=== PATIENT | male | born 1975 | race Caucasian/White ===

== ENCOUNTER 2019-07-03 12:25 | Inpatient (IN) | payer OTHER ==
[~2019-07-03] VITALS: Ht 182.9 cm; Wt 85.0 kg
[~2019-07-03 12:25] MED LIST: ALPR1TAB7 PO; CITA10TA68 PO
[2019-07-03] MEDS ORDERED: SODIUM CHLORIDE 0.9% 2,000 ML IV ONE (12:51)
[2019-07-03] MEDS ORDERED: INSULIN REGULAR, HUMAN 100 UNITS/ML IVP ONE (13:00)
[2019-07-03 13:55] LABS: EOSINOPHILS % (AUTO) 1.7 % (1.0-6.0); HEMATOCRIT 32.4 % (41-53); HEMOGLOBIN 10.1 g/dL (13.5-17.5); LYMPHOCYTES # (AUTO) 1.5 K/uL (1.0-4.8); LYMPHOCYTES % (AUTO) 12.4 % (22.0-44.0); MEAN CORPUSCULAR HEMOGLOBIN 23.9 pg (26.0-34.0); MEAN CORPUSCULAR HGB CONC 31.2 G/dL (31.0-37.0); MEAN CORPUSCULAR VOLUME 77 fL (80-100); MONOCYTES # (AUTO) 0.8 K/uL (0.1-1.0); MONOCYTES % (AUTO) 6.7 % (2.0-9.0); NEUTROPHILS # (AUTO) 9.2 K/uL (1.8-7.7); NEUTROPHILS % (AUTO) 78.2 % (40.0-70.0); PLATELET COUNT (AUTO) 455 K/uL (150-450); RED BLOOD CELL COUNT(AUTO) 4.21 MIL/uL (4.50-5.90)
[2019-07-03 14:06] LABS: ANION GAP 5 mmol/L (8-16); CALCIUM, TOTAL 9.1 mg/dL (8.8-10.5); CARBON DIOXIDE 31 mmol/L (22-29); CHLORIDE 104 mmol/L (98-107); GLOMERULAR FILTR. RATE CALC > 60 mL/min (>60); GLUCOSE,RANDOM 78 mg/dL (70-110); POTASSIUM 4.9 mmol/L (3.5-5.1); SODIUM SERUM 140 mmol/L (136-145); UREA NITROGEN, BLOOD 9 mg/dL (7-18)
[2019-07-03 14:11] LABS: ALANINE AMINOTRANSFERASE 23 U/L (12-78); ALBUMIN 2.8 g/dL (3.4-5.0); ALKALINE PHOSPHATASE 54 U/L (46-116); ASPARTATE AMINOTRANSFERASE 14 U/L (15-37); BILIRUBIN,TOTAL 0.2 mg/dL (0.1-1.0); LIPASE 106 U/L (73-393); TOTAL PROTEIN, SERUM 8.6 g/dL (6.4-8.2)
[2019-07-03 14:20] LABS: B-TYPE NATRIURETIC PEPTIDE 97 pg/mL (0-100)
[2019-07-03] MEDS ORDERED: LIDOCAINE 5% TRANSDERMAL PATCH TD ONE (14:30)
[2019-07-03] MEDS ORDERED: ACETAMINOPHEN 325 MG TABLET PO ONE (14:30)
[2019-07-03 14:45] VITALS: BP 140/78
[2019-07-03] MEDS ORDERED: LOPERAMIDE HCL 2 MG CAPSULE PO PRN (15:15)
[2019-07-03] MEDS ORDERED: GuaiFENesin/D-METHORPHAN [SUGAR-FREE] 200-20MG/10 ML SYRUP UDCUP PO PRN (15:15)
[2019-07-03] MEDS ORDERED: ONDANSETRON HCL 4 MG/2 ML VIAL IVP PRN (15:15)
[2019-07-03] MEDS ORDERED: ALBUTEROL SULFATE HFA 90 MCG/PUFF 8 GM INHALER IH PRN (15:15)
[2019-07-03] MEDS ORDERED: ONDANSETRON HCL 4 MG TABLET PO PRN (15:15)
[2019-07-03] MEDS ORDERED: DOCUSATE SODIUM 100 MG CAPSULE PO PRN (15:15)
[2019-07-03] MEDS ORDERED: ACETAMINOPHEN 325 MG TABLET PO PRN ×2 (15:15)
[2019-07-03] MEDS ORDERED: 0.9% SODIUM CHLORIDE 10 ML SYRINGE IVP PRN (15:15)
[2019-07-03] MEDS ORDERED: NICOTINE 14 MG/24 HOUR PATCH TD PRN (15:15)
[2019-07-03] MEDS ORDERED: CloNIDine HCL 0.1 MG TABLET PO PRN (15:15)
[2019-07-03] MEDS ORDERED: MAGNESIUM HYDROXIDE SUSPENSION 30 ML UDCUP PO PRN (15:15)
[2019-07-03] MEDS ORDERED: MAG HYDROX/AL HYDROX/SIMETH ES 30 ML SUSPENSION UDCUP PO PRN (15:15)
[2019-07-03] MEDS ORDERED: PETROLATUM,WHITE 28 GM JELLY TP PRN (15:15)
[2019-07-03 16:45] LABS: APPEARANCE,URINE CLEAR (CLEAR); BILIRUBIN,URINE NEGATIVE (NEGATIVE); GLUCOSE, URINE (UA) NEGATIVE (NEGATIVE); KETONES,URINE NEGATIVE (NEGATIVE); LEUKOCYTE ESTERASE ,URINE NEGATIVE (NEGATIVE); NITRATE,URINE NEGATIVE (NEGATIVE); OCCULT BLOOD,URINE NEGATIVE (NEGATIVE); PH,URINE 7.5 (5.0-8.0); PROTEIN,URINE NEGATIVE (NEGATIVE); UROBILINOGEN,URINE 0.2 mg/dL (<=1.0)
[2019-07-03 16:51] LABS: AMPHET/METH SCREEN,URINE NEGATIVE (NEGATIVE); BARBITURATE SCREEN, URINE NEGATIVE (NEGATIVE); BENZODIAZEPINES SCREEN,URINE NEGATIVE (NEGATIVE); CANNABINOID SCREEN,URINE NEGATIVE (NEGATIVE); COCAINE SCREEN,URINE NEGATIVE (NEGATIVE); METHADONE SCREEN, URINE NEGATIVE (NEGATIVE); OPIATE SCREEN,URINE NEGATIVE (NEGATIVE); PHENCYCLIDINE SCREEN,URINE NEGATIVE (NEGATIVE)
[2019-07-03] MEDS: IBUPROFEN 400 MG TABLET PO PRN (16:58)
[2019-07-03] MEDS ORDERED: MORPHINE SULFATE 2 MG/ML SYRINGE IVP ONE (18:15)
[2019-07-03 20:11] VITALS: BP 138/81
[2019-07-04] MEDS: ASCORBIC ACID 500 MG TABLET PO SCH (21:00)
[2019-07-05 07:31] LABS: HIV 1-2 SCREEN 4TH GEN W/RFLX Non Reactive (Non Reactive)
[2019-07-05] MEDS: MULTIVITAMINS WITH MINERALS, THERAPEUTIC TABLET PO SCH (08:45)
[2019-07-05] MEDS: ZINC SULFATE 220 MG CAPSULE PO SCH (08:46)
[2019-07-05] MEDS: ASCORBIC ACID 500 MG TABLET PO SCH ×2 (08:46→22:18)
[2019-07-05] MEDS ORDERED: MORPHINE SULFATE 10 MG/ML SYRINGE IVP ONE (21:45)
[2019-07-05] MEDS ORDERED: MORPHINE SULFATE 2 MG/ML SYRINGE IVP ONE (22:00)
[2019-07-05 22:19] VITALS: BP 137/87
[2019-07-06 00:06] LABS: QUANTIFERON+, Nil Value 0.03 IU/mL; QUANTIFERON+,Mitogen Value 5.03 IU/mL; QUANTIFERON+,TB1 Antigen Value 0.03 IU/mL; QUANTIFERON, TB GOLD PLUS Negative (Negative)
[2019-07-06 04:45] VITALS: BP 135/82
[2019-07-06 07:53] VITALS: BP 122/61
[2019-07-06] MEDS: ZINC SULFATE 220 MG CAPSULE PO SCH (08:41)
[2019-07-06] MEDS: IBUPROFEN 400 MG TABLET PO PRN ×2 (08:41→16:33)
[2019-07-06] MEDS: MULTIVITAMINS WITH MINERALS, THERAPEUTIC TABLET PO SCH (08:41)
[2019-07-06] MEDS: ASCORBIC ACID 500 MG TABLET PO SCH ×2 (08:42→21:12)
[2019-07-06 15:46] VITALS: BP 134/84
[2019-07-06] MEDS: OxyCODONE HCL/ACETAMINOPHEN 5-325 MG TABLET PO PRN ×2 (17:01→21:12)
[2019-07-06 19:35] VITALS: BP 104/54
[2019-07-07] MEDS: OxyCODONE HCL/ACETAMINOPHEN 5-325 MG TABLET PO PRN ×5 (01:43→20:09)
[2019-07-07 05:00] VITALS: BP 115/75
[2019-07-07 07:31] VITALS: BP 133/69
[2019-07-07] MEDS: ZINC SULFATE 220 MG CAPSULE PO SCH (08:01)
[2019-07-07] MEDS: MULTIVITAMINS WITH MINERALS, THERAPEUTIC TABLET PO SCH (08:01)
[2019-07-07] MEDS: ASCORBIC ACID 500 MG TABLET PO SCH ×2 (08:01→20:08)
[2019-07-07] MEDS: IBUPROFEN 400 MG TABLET PO PRN ×2 (08:03→16:10)
[2019-07-07] MEDS ORDERED: SODIUM CHLORIDE 3% 15 ML NEB SOLUTION NEB ONE (11:35)
[2019-07-07 15:43] VITALS: BP 122/85
[2019-07-07 19:54] LABS: BASOPHILS % (AUTO) 0.4 % (0.0-2.0); EOSINOPHILS % (AUTO) 1.4 % (1.0-6.0); HEMATOCRIT 33.7 % (41-53); HEMOGLOBIN 10.7 g/dL (13.5-17.5); LYMPHOCYTES # (AUTO) 1.7 K/uL (1.0-4.8); LYMPHOCYTES % (AUTO) 13.6 % (22.0-44.0); MEAN CORPUSCULAR HEMOGLOBIN 24.2 pg (26.0-34.0); MEAN CORPUSCULAR HGB CONC 31.6 G/dL (31.0-37.0); MEAN CORPUSCULAR VOLUME 76 fL (80-100); MONOCYTES # (AUTO) 1.2 K/uL (0.1-1.0); MONOCYTES % (AUTO) 9.7 % (2.0-9.0); NEUTROPHILS # (AUTO) 9.4 K/uL (1.8-7.7); NEUTROPHILS % (AUTO) 74.9 % (40.0-70.0); PLATELET COUNT (AUTO) 455 K/uL (150-450); RED BLOOD CELL COUNT(AUTO) 4.42 MIL/uL (4.50-5.90); RED CELL DISTRIBUTION WIDTH 15.9 % (11.5-14.5)
[2019-07-07 20:15] VITALS: BP 118/64
[2019-07-08] MEDS: OxyCODONE HCL/ACETAMINOPHEN 5-325 MG TABLET PO PRN ×7 (00:26→20:54)
[2019-07-08] MEDS: IBUPROFEN 400 MG TABLET PO PRN ×3 (04:18→20:56)
[2019-07-08 04:42] VITALS: BP 124/70
[2019-07-08] MEDS: ASCORBIC ACID 500 MG TABLET PO SCH ×2 (08:42→20:54)
[2019-07-08] MEDS: MULTIVITAMINS WITH MINERALS, THERAPEUTIC TABLET PO SCH (08:42)
[2019-07-08] MEDS: ZINC SULFATE 220 MG CAPSULE PO SCH (08:42)
[2019-07-08 08:45] VITALS: BP 118/72
[2019-07-08] MEDS: DOXYCYCLINE HYCLATE 100 MG CAPSULE PO SCH ×2 (13:06→20:54)
[2019-07-08 16:05] VITALS: BP 130/69
[2019-07-08 18:51] LABS: ALANINE AMINOTRANSFERASE 60 U/L (12-78); ALBUMIN 2.7 g/dL (3.4-5.0); ALKALINE PHOSPHATASE 63 U/L (46-116); ANION GAP 6 mmol/L (8-16); ASPARTATE AMINOTRANSFERASE 39 U/L (15-37); BILIRUBIN,TOTAL 0.1 mg/dL (0.1-1.0); CALCIUM, TOTAL 9.4 mg/dL (8.8-10.5); CARBON DIOXIDE 30 mmol/L (22-29); CHLORIDE 96 mmol/L (98-107); CREATININE 0.78 mg/dL (0.60-1.30); GLOMERULAR FILTR. RATE CALC > 60 mL/min (>60); GLUCOSE,RANDOM 91 mg/dL (70-110); POTASSIUM 4.4 mmol/L (3.5-5.1); SODIUM SERUM 132 mmol/L (136-145); UREA NITROGEN, BLOOD 15 mg/dL (7-18)
[2019-07-08 19:48] VITALS: BP 108/61
[2019-07-09] MEDS: OxyCODONE HCL/ACETAMINOPHEN 5-325 MG TABLET PO PRN ×4 (01:27→13:41)
[2019-07-09 04:43] VITALS: BP 155/87
[2019-07-09] MEDS: IBUPROFEN 400 MG TABLET PO PRN ×2 (05:23→13:42)
[2019-07-09 07:30] VITALS: BP 105/59
[2019-07-09] MEDS: ASCORBIC ACID 500 MG TABLET PO SCH (08:25)
[2019-07-09] MEDS: MULTIVITAMINS WITH MINERALS, THERAPEUTIC TABLET PO SCH (08:26)
[2019-07-09] MEDS: ZINC SULFATE 220 MG CAPSULE PO SCH (08:26)
[2019-07-09] MEDS: DOXYCYCLINE HYCLATE 100 MG CAPSULE PO SCH (11:12)
[2019-07-09] MEDS ORDERED: DOXY100C PO (11:50)
[2019-07-09 12:27] LABS: BASOPHILS % (AUTO) 0.8 % (0.0-2.0); EOSINOPHILS % (AUTO) 1.7 % (1.0-6.0); HEMATOCRIT 32.4 % (41-53); HEMOGLOBIN 10.1 g/dL (13.5-17.5); LYMPHOCYTES # (AUTO) 1.5 K/uL (1.0-4.8); MEAN CORPUSCULAR HEMOGLOBIN 23.5 pg (26.0-34.0); MEAN CORPUSCULAR HGB CONC 31.1 G/dL (31.0-37.0); MEAN CORPUSCULAR VOLUME 76 fL (80-100); MONOCYTES % (AUTO) 8.2 % (2.0-9.0); NEUTROPHILS # (AUTO) 9.3 K/uL (1.8-7.7); NEUTROPHILS % (AUTO) 77.3 % (40.0-70.0); PLATELET COUNT (AUTO) 457 K/uL (150-450); RED BLOOD CELL COUNT(AUTO) 4.29 MIL/uL (4.50-5.90); RED CELL DISTRIBUTION WIDTH 15.8 % (11.5-14.5)
[2019-07-09 12:31] LABS: ANION GAP 7 mmol/L (8-16); CALCIUM, TOTAL 9.2 mg/dL (8.8-10.5); CARBON DIOXIDE 27 mmol/L (22-29); CHLORIDE 98 mmol/L (98-107); CREATININE 0.68 mg/dL (0.60-1.30); GLOMERULAR FILTR. RATE CALC > 60 mL/min (>60); GLUCOSE,RANDOM 90 mg/dL (70-110); POTASSIUM 4.7 mmol/L (3.5-5.1); SODIUM SERUM 132 mmol/L (136-145); UREA NITROGEN, BLOOD 10 mg/dL (7-18)
[2019-07-09 12:42] LABS: ALANINE AMINOTRANSFERASE 41 U/L (12-78); ALBUMIN 2.4 g/dL (3.4-5.0); ALKALINE PHOSPHATASE 57 U/L (46-116); ASPARTATE AMINOTRANSFERASE 23 U/L (15-37); BILIRUBIN,TOTAL 0.2 mg/dL (0.1-1.0); TOTAL PROTEIN, SERUM 8.4 g/dL (6.4-8.2)
== END 2019-07-09 14:34 | DRG 204 ==
LOC: EMS 12:25 → 6S 14:25
PROVIDERS: ADMIT Internal Medicine; ATTEND Internal Medicine
DX: R04.2 Hemoptysis (principal); F41.9 Anxiety disorder, unspecified; F31.9 Bipolar disorder, unspecified; F11.90 Opioid use, unspecified, uncomplicated; F17.210 Nicotine dependence, cigarettes, uncomplicated; Z91.19 Patient's noncompliance with other medical treatment and regimen; Z87.442 Personal history of urinary calculi; M10.9 Gout, unspecified
CPT/HCPCS: 76770; 86480; 87015; 87040; 87081; 87206; 87389; 87556; 87798; 94640; J2270

== ENCOUNTER 2019-07-23 08:06 | Inpatient (IN) | payer OTHER ==
[~2019-07-23] VITALS: Ht 193 cm; Wt 109.6 kg
[~2019-07-23 08:06] MED LIST changes: -ALPR1TAB7 PO; -CITA10TA68 PO; +DOXY100C PO
[2019-07-23] MEDS ORDERED: CITA10TA68 PO (08:41)
[2019-07-23] MEDS ORDERED: BUSP15 PO (08:41)
[2019-07-23] MEDS ORDERED: SODIUM CHLORIDE 0.9% 1,000 ML IV ONE (08:47)
[2019-07-23 09:59] LABS: BILIRUBIN,URINE NEGATIVE (NEGATIVE); GLUCOSE, URINE (UA) NEGATIVE (NEGATIVE); KETONES,URINE 15 mg/dL (NEGATIVE); LEUKOCYTE ESTERASE ,URINE NEGATIVE (NEGATIVE); NITRATE,URINE NEGATIVE (NEGATIVE); OCCULT BLOOD,URINE NEGATIVE (NEGATIVE); UROBILINOGEN,URINE 0.2 mg/dL (<=1.0)
[2019-07-23 10:01] LABS: APPEARANCE,URINE CLEAR (CLEAR); PROTEIN,URINE NEGATIVE (NEGATIVE)
[2019-07-23] MEDS ORDERED: ACETAMINOPHEN 325 MG TABLET PO PRN ×2 (12:00→16:00)
[2019-07-23] MEDS ORDERED: 0.9% SODIUM CHLORIDE 10 ML SYRINGE IVP PRN (12:00)
[2019-07-23] MEDS ORDERED: ONDANSETRON HCL 4 MG/2 ML VIAL IVP PRN ×2 (12:00→16:00)
[2019-07-23 12:56] LABS: BASOPHILS % (AUTO) 0.8 % (0.0-2.0); EOSINOPHILS % (AUTO) 0.7 % (1.0-6.0); HEMATOCRIT 29.8 % (41-53); HEMOGLOBIN 9.3 g/dL (13.5-17.5); LYMPHOCYTES # (AUTO) 1.3 K/uL (1.0-4.8); LYMPHOCYTES % (AUTO) 15.9 % (22.0-44.0); MEAN CORPUSCULAR HEMOGLOBIN 23.2 pg (26.0-34.0); MEAN CORPUSCULAR HGB CONC 31.2 G/dL (31.0-37.0); MEAN CORPUSCULAR VOLUME 75 fL (80-100); MONOCYTES # (AUTO) 0.6 K/uL (0.1-1.0); MONOCYTES % (AUTO) 6.9 % (2.0-9.0); NEUTROPHILS # (AUTO) 6.3 K/uL (1.8-7.7); NEUTROPHILS % (AUTO) 75.7 % (40.0-70.0); PLATELET COUNT (AUTO) 409 K/uL (150-450); RED CELL DISTRIBUTION WIDTH 16.1 % (11.5-14.5)
[2019-07-23 13:06] LABS: ANION GAP 8 mmol/L (8-16); CARBON DIOXIDE 29 mmol/L (22-29); CHLORIDE 104 mmol/L (98-107); CREATININE 0.73 mg/dL (0.60-1.30); GLOMERULAR FILTR. RATE CALC > 60 mL/min (>60); GLUCOSE,RANDOM 83 mg/dL (70-110); SODIUM SERUM 141 mmol/L (136-145); UREA NITROGEN, BLOOD 7 mg/dL (7-18)
[2019-07-23] MEDS ORDERED: GADOBUTROL 1 MMOL/ML 10 ML VIAL IVP ONE ×2 (13:06→16:51)
[2019-07-23 13:11] LABS: ALANINE AMINOTRANSFERASE 23 U/L (12-78); ALBUMIN 2.6 g/dL (3.4-5.0); ALKALINE PHOSPHATASE 46 U/L (46-116); ASPARTATE AMINOTRANSFERASE 20 U/L (15-37); BILIRUBIN,TOTAL 0.2 mg/dL (0.1-1.0); LIPASE 84 U/L (73-393)
[2019-07-23] MEDS ORDERED: LORazepam 2 MG/ML VIAL IVP ONE ×2 (13:45→14:15)
[2019-07-23] MEDS ORDERED: MIDAZOLAM HCL 5 MG/ML VIAL IVP ONE (14:15)
[2019-07-23] MEDS ORDERED: DEXAMETHASONE SOD PHOS 4 MG/ML VIAL IVP ONE (14:15)
[2019-07-23] MEDS ORDERED: ZOLPIDEM TARTRATE 5 MG TABLET PO PRN (16:00)
[2019-07-23] MEDS ORDERED: MAGNESIUM HYDROXIDE SUSPENSION 30 ML UDCUP PO PRN (16:00)
[2019-07-23] MEDS ORDERED: MIDAZOLAM HCL 2 MG/2 ML VIAL IVP ONE (16:00)
[2019-07-23] MEDS ORDERED: BISACODYL 10 MG RECTAL RECTAL SUPPOSITORY PR PRN (16:00)
[2019-07-23] MEDS: MORPHINE SULFATE 2 MG/ML SYRINGE IVP PRN ×2 (17:56→21:54)
[2019-07-23] MEDS: HEPARIN SODIUM,PORCINE 5,000 UNITS/ML VIAL SQ SCH (18:03)
[2019-07-23 18:24] VITALS: BP 137/82
[2019-07-23] MEDS: BusPIRone HCL 15 MG TABLET PO SCH (21:00)
[2019-07-23] MEDS: DEXAMETHASONE SOD PHOS 10 MG/ML VIAL IVP SCH (21:13)
[2019-07-23] MEDS: DOCUSATE SODIUM 100 MG CAPSULE PO SCH (21:14)
[2019-07-23 21:15] VITALS: BP 128/75
[2019-07-24] MEDS: HEPARIN SODIUM,PORCINE 5,000 UNITS/ML VIAL SQ SCH ×2 (00:58→08:54)
[2019-07-24] MEDS: DEXAMETHASONE SOD PHOS 10 MG/ML VIAL IVP SCH ×4 (00:58→21:18)
[2019-07-24] MEDS: HYDROCODONE/ACETAMINOPHEN 5-325 MG TABLET PO PRN ×2 (00:58→09:02)
[2019-07-24] MEDS: MORPHINE SULFATE 2 MG/ML SYRINGE IVP PRN ×2 (04:30→13:08)
[2019-07-24 04:35] VITALS: BP 123/74
[2019-07-24 07:21] VITALS: BP 105/54
[2019-07-24] MEDS: BusPIRone HCL 15 MG TABLET PO SCH ×2 (08:54→21:17)
[2019-07-24] MEDS: PANTOPRAZOLE SODIUM 40 MG DR TABLET PO SCH (08:55)
[2019-07-24] MEDS: DOCUSATE SODIUM 100 MG CAPSULE PO SCH ×2 (08:55→21:00)
[2019-07-24] MEDS: CITALOPRAM HYDROBROMIDE 10 MG TABLET PO SCH (08:55)
[2019-07-24] MEDS ORDERED: SODIUM CHLORIDE 0.9% 100 ML ONE ×4 (09:50→16:28)
[2019-07-24] MEDS ORDERED: IOVERSOL 350 MG/ML 100 ML VIAL ONE (09:51)
[2019-07-24] MEDS ORDERED: IOVERSOL 350 MG/ML 150 ML VIAL ONE (10:02)
[2019-07-24] MEDS ORDERED: PROPOFOL 1% 20 ML VIAL IVP ONE (12:00)
[2019-07-24] MEDS ORDERED: ONDANSETRON HCL 4 MG/2 ML VIAL IVP ONE (12:00)
[2019-07-24] MEDS ORDERED: FentaNYL CITRATE-PF 100 MCG/2 ML VIAL IVP ONE (12:00)
[2019-07-24] MEDS ORDERED: MIDAZOLAM HCL 2 MG/2 ML VIAL IVP ONE (12:00)
[2019-07-24] MEDS ORDERED: HYDROmorphone 2 MG/ML SYRINGE IVP ONE (12:00)
[2019-07-24] MEDS ORDERED: EPHEDrine SULFATE 50 MG/ML VIAL IM ONE (12:00)
[2019-07-24] MEDS ORDERED: ROCURONIUM BROMIDE 10 MG/ML 5 ML VIAL IVP ONE (12:00)
[2019-07-24] MEDS ORDERED: LIDOCAINE/PF 2% 5 ML VIAL INJ ONE (12:00)
[2019-07-24] MEDS ORDERED: KETAMINE HCL 50 MG/ML 10 ML VIAL IVP ONE (12:00)
[2019-07-24] MEDS ORDERED: 0.9% SODIUM CHLORIDE 10 ML VIAL IVP ONE (12:00)
[2019-07-24] MEDS ORDERED: LIDOCAINE 1%/EPI 1:200,000/PF 30 ML VIAL ONE (12:03)
[2019-07-24] MEDS ORDERED: RINGERS SOLUTION,LACTATED 1,000 ML IV ONE ×3 (12:04→14:00)
[2019-07-24] MEDS ORDERED: SODIUM CHLORIDE 0.9% 10 ML ONE (12:04)
[2019-07-24] MEDS ORDERED: VANCOMYCIN HCL 1 GM/VIAL ONE (12:04)
[2019-07-24] MEDS ORDERED: BACITRACIN 50,000 UNITS/VIAL ONE (12:04)
[2019-07-24] MEDS ORDERED: MICROFIBRILLAR COLLAGEN 1 GM PACKAGE TP ONE (12:04)
[2019-07-24] MEDS ORDERED: GELATIN SPONGE,ABSORBABLE 50 MM TP ONE (12:37)
[2019-07-24] MEDS ORDERED: THROMBIN, BOVINE 20000 UNITS/VIAL POWDER TP ONE (12:38)
[2019-07-24 13:12] LABS: INR 1.2 (0.9-1.1); PROTHROMBIN TIME 12.1 SEC (9.4-11.6)
[2019-07-24] MEDS ORDERED: NOREPINEPHRINE 4 MG/D5%-WATER 250 ML IV PRN (14:45)
[2019-07-24] MEDS ORDERED: NITROPRUSSIDE SODIUM 50 MG in DEXTROSE 5%-WATER 248 ML IV ONE (14:45)
[2019-07-24] MEDS ORDERED: PROPOFOL 1000 MG/ISO-OSM 200 ML IV ONE (14:52)
[2019-07-24] MEDS ORDERED: BUPIVACAINE LIPOSOME/PF 1.3%-13.3MG/ML SUSPENSION 20 ML VIAL INJ ONE (16:15)
[2019-07-24] MEDS ORDERED: RINGERS SOLUTION,LACTATED 2,000 ML IV ONE (16:33)
[2019-07-24] MEDS ORDERED: MAGNESIUM HYDROXIDE SUSPENSION 30 ML UDCUP PO PRN (17:45)
[2019-07-24] MEDS ORDERED: MORPHINE SULFATE 2 MG/ML SYRINGE IVP PRN (17:45)
[2019-07-24] MEDS ORDERED: BISACODYL 10 MG RECTAL RECTAL SUPPOSITORY PR PRN (17:45)
[2019-07-24] MEDS ORDERED: MORPHINE SULFATE 4 MG/ML SYRINGE IVP PRN (17:45)
[2019-07-24] MEDS ORDERED: HYDROCODONE/ACETAMINOPHEN 5-325 MG TABLET PO PRN ×2 (17:45)
[2019-07-24] MEDS ORDERED: SODIUM PHOS/SODIUM BIPHOS 133 ML ENEMA PR PRN (17:45)
[2019-07-24] MEDS ORDERED: DiphenhydrAMINE HCL 25 MG CAPSULE PO PRN (17:45)
[2019-07-24] MEDS ORDERED: HYDROmorphone 2 MG/ML SYRINGE IVP PRN (18:15)
[2019-07-24] MEDS ORDERED: FentaNYL CITRATE-PF 100 MCG/2 ML VIAL IVP PRN (18:15)
[2019-07-24 19:45] VITALS: BP 118/74
[2019-07-24 20:00] VITALS: BP 123/68
[2019-07-24] MEDS: OXYGEN THERAPY IH SCH (21:17)
[2019-07-24] MEDS: DOCUSATE SODIUM 250 MG CAPSULE PO SCH (21:17)
[2019-07-24] MEDS: HYDROmorphone 2 MG/ML SYRINGE IVP PRN (22:13)
[2019-07-24 22:22] VITALS: BP 128/70
[2019-07-24] MEDS: ACETAMINOPHEN 1000 MG/ISO-OSM 100 ML IV SCH (22:43)
[2019-07-24] MEDS ORDERED: SODIUM CHLORIDE 0.9% 250 ML IV ONE (22:44)
[2019-07-24 23:07] VITALS: BP 131/79
[2019-07-25] VITALS (15 sets, daily range): BP systolic 101–141; BP diastolic 50–77
[2019-07-25] MEDS: HYDROmorphone 2 MG/ML SYRINGE IVP PRN ×9 (00:36→23:45)
[2019-07-25] MEDS: DEXAMETHASONE SOD PHOS 10 MG/ML VIAL IVP SCH ×3 (01:50→12:10)
[2019-07-25] MEDS: ACETAMINOPHEN 1000 MG/ISO-OSM 100 ML IV SCH (04:25)
[2019-07-25 05:39] LABS: HEMATOCRIT 28.7 % (41-53)
[2019-07-25] MEDS ORDERED: ACETAMINOPHEN 325 MG TABLET PO PRN (08:00)
[2019-07-25] MEDS: HEPARIN SODIUM,PORCINE 5,000 UNITS/ML VIAL SQ SCH ×4 (09:19→23:43)
[2019-07-25] MEDS: BusPIRone HCL 15 MG TABLET PO SCH ×2 (09:19→21:11)
[2019-07-25] MEDS: SENNA 187 MG TABLET PO SCH (09:20)
[2019-07-25] MEDS: CITALOPRAM HYDROBROMIDE 10 MG TABLET PO SCH (09:20)
[2019-07-25] MEDS: PANTOPRAZOLE SODIUM 40 MG DR TABLET PO SCH (09:21)
[2019-07-25] MEDS: DOCUSATE SODIUM 100 MG CAPSULE PO SCH (09:21)
[2019-07-25] MEDS: CYCLOBENZAPRINE HCL 10 MG TABLET PO PRN (09:21)
[2019-07-25] MEDS: OXYGEN THERAPY IH SCH ×2 (09:23→20:00)
[2019-07-25] MEDS ORDERED: OxyCODONE HCL/ACETAMINOPHEN 5-325 MG TABLET PO PRN (16:45)
[2019-07-25] MEDS ORDERED: OxyCODONE HCL/ACETAMINOPHEN 10-325 MG TABLET PO PRN (19:00)
[2019-07-25] MEDS: DOCUSATE SODIUM 250 MG CAPSULE PO SCH (20:58)
[2019-07-25] MEDS: MORPHINE SULFATE 2 MG/ML SYRINGE IVP PRN (21:09)
[2019-07-26 04:00] VITALS: BP 138/83
[2019-07-26] MEDS: MORPHINE SULFATE 2 MG/ML SYRINGE IVP PRN ×3 (04:14→20:41)
[2019-07-26] MEDS: DEXAMETHASONE SOD PHOS 10 MG/ML VIAL IVP SCH ×4 (05:31→18:29)
[2019-07-26] MEDS: HYDROmorphone 2 MG/ML SYRINGE IVP PRN ×3 (06:45→18:29)
[2019-07-26 07:15] LABS: HEMATOCRIT 28.8 % (41-53); HEMOGLOBIN 9.2 g/dL (13.5-17.5)
[2019-07-26 07:24] VITALS: BP 119/73
[2019-07-26] MEDS: OXYGEN THERAPY IH SCH ×2 (08:00→20:00)
[2019-07-26] MEDS: HEPARIN SODIUM,PORCINE 5,000 UNITS/ML VIAL SQ SCH ×2 (08:02→15:19)
[2019-07-26] MEDS: PANTOPRAZOLE SODIUM 40 MG DR TABLET PO SCH (08:02)
[2019-07-26] MEDS: CITALOPRAM HYDROBROMIDE 10 MG TABLET PO SCH (08:03)
[2019-07-26] MEDS: SENNA 187 MG TABLET PO SCH (08:03)
[2019-07-26] MEDS: BusPIRone HCL 15 MG TABLET PO SCH ×2 (08:03→19:56)
[2019-07-26 11:02] LABS: BASOPHILS % (AUTO) 0.4 % (0.0-2.0); EOSINOPHILS % (AUTO) 0.1 % (1.0-6.0); HEMATOCRIT 29.4 % (41-53); HEMOGLOBIN 9.1 g/dL (13.5-17.5); LYMPHOCYTES # (AUTO) 1.5 K/uL (1.0-4.8); MEAN CORPUSCULAR HEMOGLOBIN 23.4 pg (26.0-34.0); MEAN CORPUSCULAR HGB CONC 31.1 G/dL (31.0-37.0); MEAN CORPUSCULAR VOLUME 75 fL (80-100); MONOCYTES # (AUTO) 1.1 K/uL (0.1-1.0); MONOCYTES % (AUTO) 9.4 % (2.0-9.0); NEUTROPHILS # (AUTO) 8.7 K/uL (1.8-7.7); NEUTROPHILS % (AUTO) 77.1 % (40.0-70.0); PLATELET COUNT (AUTO) 378 K/uL (150-450); RED BLOOD CELL COUNT(AUTO) 3.91 MIL/uL (4.50-5.90); RED CELL DISTRIBUTION WIDTH 16.5 % (11.5-14.5)
[2019-07-26 11:13] LABS: ALANINE AMINOTRANSFERASE 35 U/L (12-78); ALBUMIN 2.3 g/dL (3.4-5.0); ALKALINE PHOSPHATASE 47 U/L (46-116); ANION GAP 8 mmol/L (8-16); ASPARTATE AMINOTRANSFERASE 27 U/L (15-37); BILIRUBIN,TOTAL 0.1 mg/dL (0.1-1.0); CALCIUM, TOTAL 8.5 mg/dL (8.8-10.5); CARBON DIOXIDE 31 mmol/L (22-29); CHLORIDE 104 mmol/L (98-107); CREATININE 0.73 mg/dL (0.60-1.30); GLOMERULAR FILTR. RATE CALC > 60 mL/min (>60); GLUCOSE,RANDOM 108 mg/dL (70-110); SODIUM SERUM 143 mmol/L (136-145); TOTAL PROTEIN, SERUM 6.9 g/dL (6.4-8.2); UREA NITROGEN, BLOOD 14 mg/dL (7-18)
[2019-07-26 15:58] VITALS: BP 134/72
[2019-07-26] MEDS: DOCUSATE SODIUM 250 MG CAPSULE PO SCH (19:56)
[2019-07-27] MEDS: DEXAMETHASONE SOD PHOS 10 MG/ML VIAL IVP SCH ×4 (00:23→17:53)
[2019-07-27] MEDS: HEPARIN SODIUM,PORCINE 5,000 UNITS/ML VIAL SQ SCH ×3 (00:24→16:57)
[2019-07-27] MEDS: HYDROmorphone 2 MG/ML SYRINGE IVP PRN ×4 (00:24→17:57)
[2019-07-27] MEDS: MORPHINE SULFATE 2 MG/ML SYRINGE IVP PRN ×3 (04:01→14:09)
[2019-07-27] MEDS: BusPIRone HCL 15 MG TABLET PO SCH ×2 (07:51→20:48)
[2019-07-27] MEDS: CITALOPRAM HYDROBROMIDE 10 MG TABLET PO SCH (07:51)
[2019-07-27] MEDS: PANTOPRAZOLE SODIUM 40 MG DR TABLET PO SCH (07:51)
[2019-07-27] MEDS: SENNA 187 MG TABLET PO SCH (07:54)
[2019-07-27] MEDS: OXYGEN THERAPY IH SCH ×2 (08:00→20:00)
[2019-07-27 08:04] VITALS: BP 127/70
[2019-07-27 16:42] VITALS: BP 115/53
[2019-07-27 19:45] VITALS: BP 121/74
[2019-07-27] MEDS: DOCUSATE SODIUM 250 MG CAPSULE PO SCH (20:48)
[2019-07-27] MEDS: OxyCODONE HCL/ACETAMINOPHEN 5-325 MG TABLET PO PRN (20:49)
[2019-07-27] MEDS: CYCLOBENZAPRINE HCL 10 MG TABLET PO PRN (20:50)
[2019-07-28] MEDS: HEPARIN SODIUM,PORCINE 5,000 UNITS/ML VIAL SQ SCH ×3 (00:29→16:08)
[2019-07-28] MEDS: DEXAMETHASONE SOD PHOS 4 MG/ML VIAL IVP SCH ×4 (00:29→18:02)
[2019-07-28] MEDS: HYDROmorphone 2 MG/ML SYRINGE IVP PRN ×3 (00:30→16:09)
[2019-07-28] MEDS: MORPHINE SULFATE 2 MG/ML SYRINGE IVP PRN ×2 (05:30→20:06)
[2019-07-28 05:54] VITALS: BP 122/75
[2019-07-28 07:28] VITALS: BP 118/73
[2019-07-28] MEDS: OXYGEN THERAPY IH SCH ×2 (08:00→20:00)
[2019-07-28] MEDS: BusPIRone HCL 15 MG TABLET PO SCH ×2 (08:17→20:05)
[2019-07-28] MEDS: SENNA 187 MG TABLET PO SCH (08:17)
[2019-07-28] MEDS: PANTOPRAZOLE SODIUM 40 MG DR TABLET PO SCH (08:17)
[2019-07-28] MEDS: CITALOPRAM HYDROBROMIDE 10 MG TABLET PO SCH (08:17)
[2019-07-28] MEDS: OxyCODONE HCL/ACETAMINOPHEN 5-325 MG TABLET PO PRN (12:14)
[2019-07-28 15:29] VITALS: BP 139/78
[2019-07-28] MEDS: DOCUSATE SODIUM 250 MG CAPSULE PO SCH (20:05)
[2019-07-28 20:10] VITALS: BP 122/66
[2019-07-29] MEDS: HEPARIN SODIUM,PORCINE 5,000 UNITS/ML VIAL SQ SCH ×3 (00:23→15:44)
[2019-07-29] MEDS: HYDROmorphone 2 MG/ML SYRINGE IVP PRN ×5 (00:23→21:23)
[2019-07-29] MEDS: DEXAMETHASONE SOD PHOS 4 MG/ML VIAL IVP SCH ×4 (00:25→17:09)
[2019-07-29 04:00] VITALS: BP 139/81
[2019-07-29] MEDS: MORPHINE SULFATE 2 MG/ML SYRINGE IVP PRN ×2 (05:44→15:43)
[2019-07-29 07:17] VITALS: BP 117/72
[2019-07-29] MEDS: OXYGEN THERAPY IH SCH (08:00)
[2019-07-29] MEDS: CITALOPRAM HYDROBROMIDE 10 MG TABLET PO SCH (08:08)
[2019-07-29] MEDS: BusPIRone HCL 15 MG TABLET PO SCH ×2 (08:08→20:04)
[2019-07-29] MEDS: SENNA 187 MG TABLET PO SCH (08:09)
[2019-07-29] MEDS: PANTOPRAZOLE SODIUM 40 MG DR TABLET PO SCH (08:09)
[2019-07-29 15:52] VITALS: BP 118/69
[2019-07-29 19:43] VITALS: BP 121/64
[2019-07-29] MEDS: CYCLOBENZAPRINE HCL 10 MG TABLET PO PRN (20:05)
[2019-07-29] MEDS: DOCUSATE SODIUM 250 MG CAPSULE PO SCH (21:00)
[2019-07-30] MEDS: DEXAMETHASONE SOD PHOS 10 MG/ML VIAL IVP SCH ×5 (01:11→23:59)
[2019-07-30] MEDS: HEPARIN SODIUM,PORCINE 5,000 UNITS/ML VIAL SQ SCH ×4 (01:11→23:58)
[2019-07-30] MEDS: HYDROmorphone 2 MG/ML SYRINGE IVP PRN ×5 (01:17→23:59)
[2019-07-30 05:46] VITALS: BP 125/72
[2019-07-30] MEDS: OXYGEN THERAPY IH SCH (08:00)
[2019-07-30 08:21] VITALS: BP 117/68
[2019-07-30] MEDS: SENNA 187 MG TABLET PO SCH ×2 (09:00→09:25)
[2019-07-30] MEDS: BusPIRone HCL 15 MG TABLET PO SCH ×2 (09:22→20:43)
[2019-07-30] MEDS: PANTOPRAZOLE SODIUM 40 MG DR TABLET PO SCH (09:23)
[2019-07-30] MEDS: CITALOPRAM HYDROBROMIDE 10 MG TABLET PO SCH (09:26)
[2019-07-30] MEDS: MORPHINE SULFATE 2 MG/ML SYRINGE IVP PRN ×3 (09:31→20:44)
[2019-07-30 16:37] VITALS: BP 127/60
[2019-07-30 19:51] VITALS: BP 130/70
[2019-07-30] MEDS: CYCLOBENZAPRINE HCL 10 MG TABLET PO PRN (20:45)
[2019-07-30] MEDS: DOCUSATE SODIUM 250 MG CAPSULE PO SCH (21:00)
[2019-07-31 05:00] VITALS: BP 125/71
[2019-07-31] MEDS: DEXAMETHASONE SOD PHOS 10 MG/ML VIAL IVP SCH ×3 (05:10→17:00)
[2019-07-31] MEDS: HYDROmorphone 2 MG/ML SYRINGE IVP PRN ×5 (05:11→21:27)
[2019-07-31] MEDS: MORPHINE SULFATE 2 MG/ML SYRINGE IVP PRN ×3 (06:59→18:49)
[2019-07-31 08:21] VITALS: BP 116/70
[2019-07-31] MEDS: PANTOPRAZOLE SODIUM 40 MG DR TABLET PO SCH (08:21)
[2019-07-31] MEDS: MULTIVITAMINS, THERAPEUTIC TABLET PO SCH (08:21)
[2019-07-31] MEDS: SENNA 187 MG TABLET PO SCH (08:21)
[2019-07-31] MEDS: CITALOPRAM HYDROBROMIDE 10 MG TABLET PO SCH (08:22)
[2019-07-31] MEDS: HEPARIN SODIUM,PORCINE 5,000 UNITS/ML VIAL SQ SCH ×2 (08:22→16:53)
[2019-07-31] MEDS: BusPIRone HCL 15 MG TABLET PO SCH ×2 (08:22→21:28)
[2019-07-31 15:34] VITALS: BP 123/64
[2019-07-31 19:20] VITALS: BP 122/65
[2019-07-31] MEDS: DOCUSATE SODIUM 250 MG CAPSULE PO SCH (21:00)
[2019-07-31] MEDS: CYCLOBENZAPRINE HCL 10 MG TABLET PO PRN (21:28)
[2019-08-01] MEDS: HEPARIN SODIUM,PORCINE 5,000 UNITS/ML VIAL SQ SCH ×2 (00:47→08:10)
[2019-08-01] MEDS: DEXAMETHASONE SOD PHOS 10 MG/ML VIAL IVP SCH ×3 (00:47→12:47)
[2019-08-01] MEDS: HYDROmorphone 2 MG/ML SYRINGE IVP PRN ×6 (00:53→15:18)
[2019-08-01 04:28] VITALS: BP 138/68
[2019-08-01 07:46] VITALS: BP 124/69
[2019-08-01] MEDS: OXYGEN THERAPY IH SCH (08:00)
[2019-08-01] MEDS: SENNA 187 MG TABLET PO SCH (08:08)
[2019-08-01] MEDS: PANTOPRAZOLE SODIUM 40 MG DR TABLET PO SCH (08:08)
[2019-08-01] MEDS: MULTIVITAMINS, THERAPEUTIC TABLET PO SCH (08:08)
[2019-08-01] MEDS: BusPIRone HCL 15 MG TABLET PO SCH (08:09)
[2019-08-01] MEDS: CITALOPRAM HYDROBROMIDE 10 MG TABLET PO SCH (08:09)
[2019-08-01] MEDS: CYCLOBENZAPRINE HCL 10 MG TABLET PO PRN (12:47)
[2019-08-01] MEDS ORDERED: [UNRECOGNIZED DRUG - CODE] IV (14:00)
[2019-08-01] MEDS ORDERED: MULT-1203 PO (14:01)
[2019-08-01] MEDS ORDERED: PANT40TA25 PO (14:01)
[2019-08-01] MEDS ORDERED: PERCT PO (14:02)
== END 2019-08-01 15:30 | DRG 29 ==
LOC: EMS 08:07 → 6S 15:18 → ICU 07-24 19:00 → 6S 07-25 18:05
PROVIDERS: ADMIT Internal Medicine; ATTEND Internal Medicine
PROC: 00BT0ZZ Excision of Spinal Meninges, Open Approach (ICD-10-PCS; 2019-07-24)
PROC: 00NX0ZZ Release Thoracic Spinal Cord, Open Approach (ICD-10-PCS; principal; 2019-07-24 14:00)
DX: G82.21 Paraplegia, complete (principal); C34.90 Malignant neoplasm of unspecified part of unspecified bronchus or lung; C79.51 Secondary malignant neoplasm of bone; G95.20 Unspecified cord compression; G99.2 Myelopathy in diseases classified elsewhere; F31.9 Bipolar disorder, unspecified; M48.04 Spinal stenosis, thoracic region; D50.9 Iron deficiency anemia, unspecified; M54.14 Radiculopathy, thoracic region; F17.200 Nicotine dependence, unspecified, uncomplicated; R33.8 Other retention of urine; F41.9 Anxiety disorder, unspecified; M10.9 Gout, unspecified; Z79.899 Other long term (current) drug therapy
CPT/HCPCS: 36245; 36569; 71260; 72070; 72157; 72158; 72193; 74160; 76937; 76998; 82105; 84153; 85014; 85018; 86850; 86900; 86901; 86923; 87015; 87070; 87081; 87101; 87205; 87206; 87252; 97110; 97112; 97162; 97530; A9585; C9290; G0238; G0378; J0131; J0690; J1100; J1170; J1644; J2060; J2250; J2270; J2405; J2704; J3010; J3370; J3490; J7030; J7050; J7060; J7120